=== PATIENT | female | born 1985 | race African-American/Black ===

== ENCOUNTER 2025-01-08 13:19 | Outpatient (RCR) | payer MEDICAID, SELFPAY | END 2025-01-13 23:59 | disposition home or self-care (01) | LOC: SCTC 13:19 | PROVIDERS: PCP Family Medicine; Referring Provider Family Medicine; Visit Provider Nurse Practitioner Family | DX: D50.0 Iron deficiency anemia secondary to blood loss (chronic) (principal); N92.0 Excessive and frequent menstruation with regular cycle; D75.839 Thrombocytosis, unspecified; E66.9 Obesity, unspecified; Z68.41 Body mass index [BMI] 40.0-44.9, adult; I10 Essential (primary) hypertension; J45.909 Unspecified asthma, uncomplicated | CPT/HCPCS: 96365; 96375; 99212; J2919; J3490; J7040; J7050; Q0138; G0463 ==

== ENCOUNTER 2025-01-16 11:10 | Outpatient (RCR) | payer MEDICAID, SELFPAY | END 2025-02-12 23:59 | disposition home or self-care (01) | LOC: SCTC 11:10 | PROVIDERS: PCP Family Medicine; Referring Provider Family Medicine; Visit Provider Nurse Practitioner Family | DX: D50.9 Iron deficiency anemia, unspecified (principal); N92.0 Excessive and frequent menstruation with regular cycle; E66.9 Obesity, unspecified; I10 Essential (primary) hypertension; J45.909 Unspecified asthma, uncomplicated | CPT/HCPCS: 99212; G0463 ==

== ENCOUNTER 2025-06-02 14:02 | Outpatient (RCR) | payer MEDICAID, SELFPAY | END 2025-06-15 23:59 | disposition home or self-care (01) | LOC: SCTC 14:02 | PROVIDERS: Referring Provider Radiology Therapeutic Radiology; Visit Provider Radiology Therapeutic Radiology | DX: D50.0 Iron deficiency anemia secondary to blood loss (chronic) (principal); N92.0 Excessive and frequent menstruation with regular cycle; E66.9 Obesity, unspecified; I10 Essential (primary) hypertension; J45.909 Unspecified asthma, uncomplicated | CPT/HCPCS: 99212; G0463 ==